=== PATIENT | female | born 1995 | race Caucasian/White ===

== ENCOUNTER 2021-10-16 13:32 | Emergency (ER) | payer OTHER ==
[2021-10-16 13:40] VITALS: BP 102/61; PULSE 68; TEMP 99.5; BMI 31.1
== END 2021-10-16 14:31 | disposition home or self-care (01) ==
LOC: FER 13:32
DX: Z04.1 Encounter for examination and observation following transport accident (principal); V87.7XXA Person injured in collision between other specified motor vehicles (traffic), initial encounter; Y92.9 Unspecified place or not applicable
CPT/HCPCS: 99283-25